=== PATIENT | female | born 1930 | race Caucasian/White ===

== ENCOUNTER → 2017-01-02 | Outpatient (CLI) | payer OTHER | LOC: RAD 12:15 | DX: R06.00 Dyspnea, unspecified (principal) ==

== ENCOUNTER 2017-12-04 18:48 | Inpatient (IN) | payer OTHER ==
[~2017-12-04] VITALS: Ht 154.9 cm; Wt 73.0 kg
--- NOTE | ~2017-12-04 | HC ---
[facility] [place] [address] CONSULTATION Name: RITA REYNOLDS Room #: 237-P [facility] IN M.R.#: [id number] Admission: 12/04/17 Attend Phys: Sammi Hercules Discharge: Date of : [birth year] Report #: [id number] THIS REPORT FOR: //name// CC: Sammi Hercules MD [facility] Kun Terrazas MD DATE OF SERVICE: 12/04/2017 Gastroenterology Consultation The patient of Dr. Kun Terrazas and Dr. Sammi Hercules. CHIEF COMPLAINT: This is a very pleasant 87-year-old white female whom I am asked to evaluate for possible etiologies of melena and drop in hemoglobin to approximately 6.9 at the time of admission. The patient was feeling poorly at home and was having presyncopal symptoms, although she did not have any syncopal episodes. Her family brought her to the emergency room and further assessment revealed low hemoglobin and history of the melena, so she was admitted to the hospital for further evaluation and workup. PAST MEDICAL HISTORY: Significant for chronic atrial fibrillation and she has been on Savaysa for that problem. She also has a history of hyperlipidemia. At the time of admission, she is in acute renal insufficiency with a creatinine of 3.0, probably related to a BUN of 138. She has possible left retrocardiac basilar infiltrates and history of a prolonged QT interval. PAST SURGICAL HISTORY: Significant for surgery on her left elbow and a plate was placed in her left elbow at that time. That is the only surgery that she has had according to the patient and her daughter. ALLERGIES: KARL INHIBITORS, CODEINE, COMPAZINE, TRIPTANS, CATAPRES PATCHES and DECONGESTANTS. MEDICATIONS: Prior to admission included acetaminophen, atenolol, atorvastatin, Zyrtec, vitamin B12, diltiazem, fish oil, Savaysa, Lexapro, Uloric, ginkgo biloba, glucosamine, hydroxyzine, iron supplements, Singulair, Klor-Con, Demadex, Ultram, and PreserVision AREDS 2 soft gels. SOCIAL HISTORY: She does not smoke cigarettes. She does not drink alcohol. She has never had a blood transfusion. She denies any history of any street drug use. She denies any history of jaundice, hepatitis, cholelithiasis, cholecystitis or pancreatitis. [address] [address] CONSULTATION Name: RITA REYNOLDS Torie Room #: 237-P [facility] IN ..#: [id number] Admission: 12/04/17 Attend Phys: Sammi Hercules Discharge: Date of : [birth year] Report #: [id number] FAMILY HISTORY: Significant for colon cancer in her son at age 50. No one else has had colon cancer in her family that she is aware of. The patient herself had colonoscopies regularly and the last one was about 10 years ago and she has never had colon polyps or colon cancers. REVIEW OF SYSTEMS: She denies any dysphagia, odynophagia, gastroesophageal reflux, hiatal hernia, peptic ulcer disease. She did have some nausea and vomiting about 48 hours ago. There was no blood in the emesis or any coffee-ground appearance to the emesis. She denies any change in weight or change in appetite. She denies any hematemesis or hematochezia, but she has had melanotic stool that we know of. Overall, at least the last 24 hours, she may have had them longer than that. Her memory is a little bit shaky with regard in the stool colors. She denies any abdominal pain. Denies any constipation or diarrhea. PHYSICAL EXAMINATION: GENERAL: Reveals a well-developed, well-nourished 87-year-old frail white female in no apparent distress at the time of the examination. She is awake, alert, oriented times 4 and cooperative and very pleasant to converse with. VITAL SIGNS: Temperature is 98.2, pulse is 109, respirations are 15, blood pressure is 112/68. Her height is 5 feet 1 inch and her weight is 161 pounds today. NEUROLOGIC: She is awake, alert, oriented times 4 and cooperative and pleasant to converse with. HEENT: She is normocephalic, atraumatic and anicteric. HEART: Irregularly irregular. LUNGS: Clear to auscultation bilaterally in all garcía. ABDOMEN: Soft. Bowel sounds are present in all 4 quadrants. There is no palpable organomegaly or mass. There is no tenderness, rebound or guarding to deep palpation. EXTREMITIES: Warm and dry. NEUROLOGIC: She appears grossly intact without lateralizing signs, though I did not test her extensively radiologically speaking. SIGNIFICANT LABORATORY DATA: Electrolytes are within normal limits. BUN was 138, creatinine 3.0 yesterday. Today, her BUN is 130 with creatinine 2.6. Liver enzymes are all normal. Lipase is normal. On admission, her hemoglobin was 6.9. She received 2 units of packed cells. Her hemoglobin is now up to 9.0. She has a normocytic normochromic anemia. Platelets are 121151, white count 13.3 on admission. TSH is elevated at 4.88. Urinalysis is unremarkable. She has had 2 units of packed cells transfused. IMAGING DATA: Chest x-ray that was done in the emergency room showed normal heart size. There are suspected retrocardiac left basilar infiltrates, but no pleural effusion. [facility] [address] [place] [address] CONSULTATION Name: RITA REYNOLDS Room #: 237-P ADM IN M.R.#: [id number] Admission: 12/04/17 Attend Phys: Sammi Hercules Discharge: Date of : [birth year] Report #: [id number] IMPRESSION: 1. Probable upper gastrointestinal bleed with melena, elevated BUN, and hypotension. 2. Symptomatic anemia with presyncope. 3. Chronic atrial fibrillation. The patient is on Savaysa. Last dose was yesterday morning. She also has history of prolonged QT interval. 4. Possible hypothyroidism. 5. History of fractured left elbow and she has had a surgical repair of that with a plate of some sort placed in her arm. 6. Family history of colon cancer in her son at age 50. The patient's last colonoscopy was greater than 10 years ago, but she has never had any history of colon polyps or colon cancer. 7. Acute renal insufficiency with a creatinine of 3.0 and a BUN of 138. Family relates there has been no history of any renal insufficiency in her past. 8. Possible left retrocardiac basilar infiltrates. 9. Hyperlipidemia. RECOMMENDATIONS: Continue the Protonix drip. We will monitor H and H q. 8 hours, started on a regular diet today because they are not going to be able to scope her since she has been on Savaysa. She will need to be off of Savaysa for about another day. We will make her n.p.o. for tentative EGD tomorrow morning. The patient is agreeable with this plan and her family also has been notified. We will obtain consent for EGD by me and schedule the procedure. Thank you very much once again for allowing me to participate in her care, Dr. Hercules and Dr. Terrazas. <ELECTRONICALLY SIGNED> By: Zuleika Jose DO 12/06/17 0638 [id number] [id number] Zuleika Jose DO /nt
--- NOTE | ~2017-12-04 | PATH ---
[facility] [address] [place] [address] PATHOLOGY RPT PROCEDURE Name: RITA REYNOLDS Room #: 206-P DIS IN M.R.#: [id number] Admission: 12/04/17 Date of : [birth year] Discharge: 12/07/17 Report #: [id number] Path Case #: [id number] [facility] Accession Number: [id number] . 01 Material submitted: . BIOPSY OF GASTRITIS ANTRUM R/O H.PYLORI . 01 Clinical history: . Pre-OP DX: Melena Post-OP DX: Erosive gastritis, gastric antrum ulcer Rule out H. pylori . 02 Diagnosis: Gastric mucosa, gastritis antrum rule out H. pylori, endoscopic biopsy: - Mild chronic inflammation. - Negative for intestinal metaplasia or atrophy. - Negative for Helicobacter pylori (properly controlled immunohistochemical stain performed). (IUV:ludivina; 12/08/2017) QMS/12/08/2017 . 02 Electronically signed: . Patti Sullivan MD, Pathologist NPI- [id number] . 01 Gross description: . Received in formalin labeled "Rita Reynolds, BX of gastritis-antrum," is a single segment of bailey soft tissue measuring 0.4 cm in maximum dimension. The specimen is entirely submitted in cassette A1. (TSD; 12/06/2017) TOB/TOB . 02 Pathologist provided ICD-10: K29.50 . 02 CPT . 235914, C85197 Performed at: [address], [place] [id number] MD Negro Mijares MD Phone: [phone] Performed at: [address] [id number] MD Patti Sullivan MD Phone: [phone]
--- NOTE | ~2017-12-04 | EKG ---
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 : 1930 Requested By: Júnior Escalera Order Number: [id number] MD: Carlos Carrera Measurements Intervals Leland Rate: 130 P: AL: QRS: -9 QRSD: 79 T: QT: 348 QTc: 512 Interpretive Statements Atrial fibrillation Low voltage, precordial leads Nonspecific T abnormalities, diffuse leads Prolonged QT interval Compared to ECG 09/29/1991 21:58:00 Atrial fibrillation is replaced sinus rhythm nonspecific ST and T wave abnormality is present Electronically Signed On 12-05-2017 7:44:46 CDT by Carlos Carrera [email or web address] <ELECTRONICALLY SIGNED> By: Carlos Carrera MD, [facility] 12/05/17 0744 36 36 Carlos Carrera MD, [facility] /EPI
[2017-12-04 18:51] VITALS: BP 85/47
[2017-12-04] MEDS ORDERED: ATENOLOL 100MG100 MG PO (19:09)
[2017-12-04] MEDS ORDERED: ATENOLOL 50MG T50 M1 PO (19:09)
[2017-12-04] MEDS ORDERED: LIPITOR 20 MG T20 M1 PO (19:09)
[2017-12-04] MEDS ORDERED: CARDIZEM CD120 MG PO (19:10)
[2017-12-04] MEDS ORDERED: GLUCOSAMINE HC500 MG PO (19:10)
[2017-12-04] MEDS ORDERED: FISH OIL 1,001000 M2 PO (19:10)
[2017-12-04] MEDS ORDERED: GINKGO BILOBA120 M1 PO (19:10)
[2017-12-04] MEDS ORDERED: HYDROXYZINE HCL25 M1 PO (19:11)
[2017-12-04] MEDS ORDERED: IRON18 M1 PO (19:11)
[2017-12-04] MEDS ORDERED: LEXAPRO20 MG PO (19:12)
[2017-12-04] MEDS ORDERED: PRESERVISION A1 EAC2 PO (19:12)
[2017-12-04] MEDS ORDERED: KLOR-CON 10 ER10 MEQ PO (19:12)
[2017-12-04] MEDS ORDERED: SINGULAIR 10 MG10 M1 PO (19:13)
[2017-12-04] MEDS ORDERED: SAVAYSA30 MG PO (19:13)
[2017-12-04] MEDS ORDERED: DEMADEX20 MG PO (19:13)
[2017-12-04] MEDS ORDERED: ULORIC40 MG PO (19:13)
[2017-12-04] MEDS ORDERED: ZYRTEC10 M5 PO (19:13)
[2017-12-04] MEDS ORDERED: TYLENOL325 MG PO (19:14)
[2017-12-04] MEDS ORDERED: TRAMADOL 50 MG50 MG PO (19:14)
[2017-12-04] MEDS ORDERED: VITAMIN B-1250 MC2 PO (19:14)
[2017-12-04 20:23] LABS: EOSINOPHILS 0.2 % (0.0-3.0); HEMOGLOBIN 6.9 gm/dL (12.0-15.0)
[2017-12-04 20:25] LABS: ABSOLUTE NEUTROPHILS 8.3 thou/uL (1.4-8.2); BASOPHILS 0.7 % (0.0-2.0); HEMATOCRIT 20.8 % (37.0-47.0); LYMPHOCYTES 30.5 % (24.0-44.0); MCH 30.2 pg (26.0-34.0); MCV 91.4 fL (80.0-100.0); MONOCYTES 6.3 % (1.0-8.0); PLATELET COUNT 200 thou/uL (150-400); POLYS 62.3 % (36.0-66.0); RBC 2.27 mil/uL (4.20-5.00); RDW 14.2 % (10.5-14.5); WBC 13.3 thou/uL (4.0-11.0)
[2017-12-04 20:38] LABS: ANION GAP 12 mmol/L (7-16); BUN 138 mg/dL (7-18); CHLORIDE 100 mmol/L (98-107); CO2 28 mmol/L (21-32); GLUCOSE 149 mg/dL (74-106); POTASSIUM 4.3 mmol/L (3.5-5.1); SODIUM 140 mmol/L (136-145)
[2017-12-04 20:42] LABS: ALBUMIN 3.5 g/dL (3.4-5.0); DIRECT BILIRUBIN < 0.1 mg/dL (<0.1-0.3); LIPASE 80 U/L (73-393); SGOT 11 U/L (15-37); SGPT 12 U/L (30-65); TOTAL BILIRUBIN 0.2 mg/dL (<0.1-1.0); TROPONIN-I <0.06 ng/mL (<0.06)
[2017-12-04 22:44] VITALS: BP 104/68; BP 105/48; BP 116/70; BP 127/65
[2017-12-04 23:34] VITALS: BP 127/65
[2017-12-05] VITALS (25 sets, daily range): BP systolic 109–138; BP diastolic 54–94
[2017-12-05 02:49] LABS: HEMATOCRIT 21.8 % (37.0-47.0); HEMOGLOBIN 7.2 gm/dL (12.0-15.0); MCH 29.9 pg (26.0-34.0); MCHC 33.2 g/dL (28.0-37.0); MCV 90.1 fL (80.0-100.0); RBC 2.42 mil/uL (4.20-5.00); RDW 14.4 % (10.5-14.5); WBC 11.9 thou/uL (4.0-11.0)
[2017-12-05 03:12] LABS: CALCIUM 8.3 mg/dL (8.5-10.1); CREATININE 2.6 mg/dL (0.6-1.0); POTASSIUM 4.2 mmol/L (3.5-5.1)
[2017-12-05 05:17] LABS: URINE BILIRUBIN NEGATIVE (Negative); URINE BLOOD NEGATIVE (Negative); URINE CLARITY CLEAR; URINE COLOR YELLOW; URINE GLUCOSE-RANDOM* NEGATIVE (Negative); URINE KETONES NEGATIVE (Negative); URINE LEUKOCYTES-REFLEX NEGATIVE (Negative); URINE NITRITE-REFLEX NEGATIVE (Negative); URINE PROTEIN (DIPSTICK) NEGATIVE (Negative); URINE SPECIFIC GRAVITY <= 1.005 (1.005-1.035); URINE UROBILINOGEN 0.2 E.U./dl (0.2-1.0)
[2017-12-05 09:36] LABS: HEMATOCRIT 26.4 % (37.0-47.0)
[2017-12-05 19:19] LABS: HEMATOCRIT 24.6 % (37.0-47.0); HEMOGLOBIN 8.4 gm/dL (12.0-15.0)
[2017-12-06] VITALS (18 sets, daily range): BP systolic 105–148; BP diastolic 50–97
[2017-12-06 05:14] LABS: HEMATOCRIT 23.6 % (37.0-47.0); MCH 30.2 pg (26.0-34.0); MCV 88.6 fL (80.0-100.0); RBC 2.67 mil/uL (4.20-5.00); RDW 15.9 % (10.5-14.5); WBC 8.8 thou/uL (4.0-11.0)
[2017-12-06 05:27] LABS: APTT 23.3 Seconds (24.5-32.8); INR 1.1; PROTIME 10.8 Seconds (9.3-11.4)
[2017-12-06 10:12] LABS: CALCIUM 9.3 mg/dL (8.5-10.1); CREATININE 1.7 mg/dL (0.6-1.0); POTASSIUM 4.3 mmol/L (3.5-5.1)
[2017-12-07 03:54] VITALS: BP 119/59
[2017-12-07 06:06] LABS: HEMOGLOBIN 8.4 gm/dL (12.0-15.0); MCH 29.8 pg (26.0-34.0); MCHC 33.4 g/dL (28.0-37.0); MCV 89.2 fL (80.0-100.0); RBC 2.81 mil/uL (4.20-5.00); RDW 15.3 % (10.5-14.5); WBC 13.4 thou/uL (4.0-11.0)
[2017-12-07 06:19] LABS: ALBUMIN 3.2 g/dL (3.4-5.0); CALCIUM 9.1 mg/dL (8.5-10.1); CREATININE 1.5 mg/dL (0.6-1.0); PHOSPHORUS 2.8 mg/dL (2.5-4.9); POTASSIUM 4.1 mmol/L (3.5-5.1)
[2017-12-07 08:24] VITALS: BP 115/73
[2017-12-07] MEDS ORDERED: CARDIZEM CD240 MG PO (08:44)
[2017-12-07] MEDS ORDERED: PROTONIX40 M1 PO (08:51)
[2017-12-07 08:58] VITALS: BP 115/73
[2017-12-07 09:58] VITALS: BP 115/73
[2017-12-07 10:07] VITALS: BP 115/73
[2017-12-07 11:18] VITALS: BP 131/75
== END 2017-12-07 12:54 | disposition home health service (06) | DRG 377 ==
LOC: ER 18:48 → EROBS 22:15 → ICU 22:15 → 2N 12-06 17:10 → ENTRNSPT 12-07 12:11 → EDTRNSPTSTS 12-07 12:16 → 2N 12-07 12:54
PROVIDERS: Emergency Medicine; Hospitalist; Internal Medicine Gastroenterology; Nurse Practitioner Family
PROC: 30233N1 Transfusion of Nonautologous Red Blood Cells into Peripheral Vein, Percutaneous Approach (ICD-10-PCS; principal; 2017-12-04)
PROC: 0DB68ZX Excision of Stomach, Via Natural or Artificial Opening Endoscopic, Diagnostic (ICD-10-PCS; 2017-12-06)
DX: K92.2 Gastrointestinal hemorrhage, unspecified (principal); N17.0 Acute kidney failure with tubular necrosis; I10 Essential (primary) hypertension; G43.909 Migraine, unspecified, not intractable, without status migrainosus; E78.5 Hyperlipidemia, unspecified; D64.9 Anemia, unspecified; I48.2 Chronic atrial fibrillation; F32.9 Major depressive disorder, single episode, unspecified; F41.9 Anxiety disorder, unspecified; K25.9 Gastric ulcer, unspecified as acute or chronic, without hemorrhage or perforation; K22.2 Esophageal obstruction; K29.00 Acute gastritis without bleeding; Z88.6 Allergy status to analgesic agent; Z88.8 Allergy status to other drugs, medicaments and biological substances; Z87.81 Personal history of (healed) traumatic fracture; Z80.0 Family history of malignant neoplasm of digestive organs; Z79.01 Long term (current) use of anticoagulants; Z79.899 Other long term (current) drug therapy
CPT/HCPCS: 10078; 10081; 62110; 62900